=== PATIENT | male | born 1955 | race Caucasian/White ===

== ENCOUNTER 2019-02-09 11:13 | Day surgery (SDC) | payer BC, OTHER ==
[2019-02-06 09:20] VITALS: BP 116/74
[~2019-02-09] VITALS: Ht 177.8 cm; Wt 106.3 kg
[~2019-02-09 11:13] MED LIST: ASCO10004 PO; ATOR40TA PO; CHOL5000 PO; HYDR25TA6 PO; LISI-167 PO; METF500T9 PO; OMEP40CA6 PO; TRAZ-137 PO; VARE1TAB21 PO
[2019-02-09] MEDS ORDERED: LACTATED RINGERS 1,000 ML IV SCH (11:53)
[2019-02-09 12:22] LABS: ALANINE AMINOTRANSFERASE 51 U/L (12-78); ALBUMIN 3.3 g/dL (3.4-5.0); ANION GAP 5 mmol/L (5-15); CALCIUM 9.4 mg/dL (8.5-10.1); CHLORIDE 109 mmol/L (98-107); CREATININE 0.84 mg/dL (0.7-1.3)
[2019-02-09 12:24] LABS: ALKALINE PHOSPHATASE 139 U/L (45-117); BILIRUBIN,TOTAL 0.5 mg/dL (0.2-1.0); TOTAL PROTEIN 7.8 g/dL (6.4-8.2)
[2019-02-09] MEDS ORDERED: TRIAMCINOLONE ACETONIDE 40 MG/ML, 1ML ONE ×2 (12:31→16:03)
[2019-02-09] MEDS ORDERED: BUPIVACAINE/PF 0.25% ONE (12:31)
[2019-02-09] MEDS ORDERED: LABETALOL 5 MG/ML SYRINGE IV PRN (13:30)
[2019-02-09] MEDS ORDERED: MEPERIDINE/PF 25MG/0.5ML IVPush PRN (13:30)
[2019-02-09] MEDS ORDERED: OXYcodone 5 MG/5 ML ORAL.SOL UDC PO PRN (13:30)
[2019-02-09] MEDS ORDERED: ONDANSETRON 2MG/ML, 2ML IVPush PRN (13:30)
[2019-02-09] MEDS ORDERED: MIDAZOLAM 1 MG/ML, 2ML IV PRN (13:30)
[2019-02-09] MEDS ORDERED: MIDAZOLAM 1 MG/ML, 2ML ONE (13:34)
[2019-02-09] MEDS ORDERED: FENTANYL PF 100 MCG/2ML ONE ×2 (13:34→14:55)
[2019-02-09] MEDS ORDERED: SUGAMMADEX 200 MG/2 ML IVPush ONE (14:09)
[2019-02-09] MEDS ORDERED: DEXAMETHASONE 4 MG/ML, 1ML ONE ×2 (14:33→14:35)
[2019-02-09] MEDS ORDERED: ALBUTEROL SULFATE 2.5 MG/3 ML ONE (14:50)
[2019-02-09] MEDS ORDERED: ACETAMINOPHEN 650 MG/20.3 ML UDC ONE (14:54)
[2019-02-09] MEDS: FENTANYL PF 100 MCG/2ML IV PRN ×2 (14:57→15:09)
[2019-02-09] MEDS ORDERED: ALBUTEROL SULFATE 2.5 MG/3 ML NPPB PRN (15:00)
[2019-02-09] MEDS ORDERED: ACETAMINOPHEN 650 MG/20.3 ML UDC PO PRN (15:00)
[2019-02-09] MEDS ORDERED: DEXAMETHASONE 4 MG/ML, 1ML IVPush ONE (15:00)
[2019-02-09] MEDS ORDERED: HYDROmorphone 1 MG/ML, 1ML ONE (15:11)
[2019-02-09] MEDS: HYDROmorphone 1 MG/ML, 1ML IV PRN ×2 (15:14→15:28)
[2019-02-09] MEDS ORDERED: PROPOFOL 10 MG/ML, 20ML ONE (15:26)
[2019-02-09] MEDS ORDERED: SUCCINYLCHOLINE 20 MG/ML, 10ML ONE (15:26)
[2019-02-09] MEDS ORDERED: CEFAZOLIN 1,000 MG ONE (15:26)
[2019-02-09] MEDS ORDERED: ROCURONIUM 10MG/ML,5ML ONE (15:26)
== END 2019-02-09 17:00 | disposition home or self-care (01) ==
LOC: OUT 11:13
PROVIDERS: ATTEND Internal Medicine Gastroenterology
DX: K29.40 Chronic atrophic gastritis without bleeding (principal); K21.9 Gastro-esophageal reflux disease without esophagitis; K80.20 Calculus of gallbladder without cholecystitis without obstruction; J44.9 Chronic obstructive pulmonary disease, unspecified; E11.9 Type 2 diabetes mellitus without complications; E78.00 Pure hypercholesterolemia, unspecified; Z79.84 Long term (current) use of oral hypoglycemic drugs; Z87.891 Personal history of nicotine dependence; Z88.1 Allergy status to other antibiotic agents; Z90.49 Acquired absence of other specified parts of digestive tract; Z96.642 Presence of left artificial hip joint
CPT/HCPCS: 36415; 43242; 80053; 82962; 88305; 88341; 88342; J0330; J0690; J1100; J1170; J2250; J2704; J3010; J3301; J3490; J7120; J7613